=== PATIENT | male | born 1970 | race Caucasian/White ===

== ENCOUNTER 2018-06-20 22:14 | Emergency (ER) | payer OTHER ==
[~2018-06-20] VITALS: Ht 177.8 cm; Wt 65.8 kg
[2018-06-20 22:16] VITALS: BP 133/89
[2018-06-20] MEDS ORDERED: LIDOCAINE HCL/PF 1% 30 ML VIAL TP ONE (23:00)
[2018-06-20] MEDS ORDERED: LIDOCAINE 0.5% HCL 50 ML VIAL ONE (23:04)
== END 2018-06-20 23:46 | disposition home or self-care (01) ==
LOC: ER 22:19
DX: S61.211A Laceration without foreign body of left index finger without damage to nail, initial encounter (principal); Z98.890 Other specified postprocedural states; Z88.8 Allergy status to other drugs, medicaments and biological substances; W20.8XXA Other cause of strike by thrown, projected or falling object, initial encounter; Y93.89 Activity, other specified; Y92.89 Other specified places as the place of occurrence of the external cause; Y99.0 Civilian activity done for income or pay
CPT/HCPCS: 12001; 99283; A4606; A6402; J3490 ×2; Z7610

== ENCOUNTER 2018-11-14 01:54 | Emergency (ER) | payer SELFPAY ==
[~2018-11-14] VITALS: Ht 177.8 cm; Wt 68.0 kg
[2018-11-14 02:56] LABS: APPEARANCE,URINE CLOUDY (CLEAR); BILIRUBIN,URINE 1+ (NEGATIVE); BLOOD, URINE 3+ Ery/uL (NEGATIVE); COLOR,URINE BROWN (YELLOW); KETONES,URINE 2+ (NEGATIVE); LEUKOCYTE ESTERASE ,URINE TRACE (NEGATIVE); NITRITE, URINE POSITIVE (NEGATIVE); PH,URINE 6.5 (5.0-8.0); PROTEIN,URINE 2+ mg/dl (NEGATIVE); UGLUCOSE NEGATIVE (NEGATIVE)
[2018-11-14] MEDS ORDERED: HYDROMORPHONE INJ 2 MG/ML DISP.SYRIN IV ONE (03:00)
[2018-11-14] MEDS ORDERED: IV NS 0.9% 1,000 ML BAG IV ONE (03:00)
[2018-11-14] MEDS ORDERED: TAMSULOSIN 0.4 MG CAP.SR.24H PO ONE (03:00)
[2018-11-14] MEDS ORDERED: ONDANSETRON HCL/PF 4 MG/2 ML VIAL IVP ONE (03:00)
[2018-11-14] MEDS ORDERED: KETOROLAC TROMETHAMINE INJ 30 MG/ML VIAL IV ONE (03:00)
[2018-11-14] MEDS ORDERED: HYDROMORPHONE INJ 2 MG/ML DISP.SYRIN ONE (03:27)
[2018-11-14] MEDS ORDERED: KETOROLAC TROMETHAMINE INJ 30 MG/ML VIAL ONE (03:28)
[2018-11-14] MEDS ORDERED: ONDANSETRON HCL/PF 4 MG/2 ML VIAL ONE (03:28)
[2018-11-14] MEDS ORDERED: TAMSULOSIN 0.4 MG CAP.SR.24H ONE (03:28)
--- NOTE | 2018-11-14 03:30 | NUR ---
pt transported to radiology
[2018-11-14 03:33] LABS: BASOPHILS % (AUTO) 0.4 % (0.0-2.0); HEMATOCRIT 43 % (39-51); HEMOGLOBIN 14.4 g/dL (13.5-17.5); LYMPHOCYTES # (AUTO) 0.8 /CMM (0.8-4.8); LYMPHOCYTES % (AUTO) 6.6 % (20.0-44.0); MEAN CORPUSCULAR HGB CONC 33 g/dl (31.0-36.0); MEAN CORPUSCULAR VOLUME 101 fL (80-96); MONOCYTES # (AUTO) 0.7 /CMM (0.1-1.30); MONOCYTES % (AUTO) 5.5 % (2.0-12.0); NEUTROPHILS # (AUTO) 11.1 /CMM (1.8-8.9); NEUTROPHILS % (AUTO) 87.5 % (43.0-81.0); PLATELET COUNT (AUTO) 256 /CMM (150-450); RED BLOOD CELL COUNT(AUTO) 4.29 MIL/uL (4.5-6.0); WHITE BLOOD COUNT (AUTO) 12.7 K/uL (4.3-11.0)
[2018-11-14 03:41] LABS: BACTERIA,URINE Few /HPF (None Seen); RBC,URINE TOO NUMEROUS TO COUN /HPF (0-2); SQUAMOUS EPITHELIAL CELL,UR Rare /HPF (None Seen)
--- NOTE | 2018-11-14 03:43 | NUR ---
Pt back from Radiology
[2018-11-14 03:46] LABS: ALBUMIN 4.1 g/dL (3.4-5.0); BILIRUBIN,DIRECT 0.1 mg/dL (0.0-0.2); BILIRUBIN,TOTAL 0.6 mg/dL (0.2-1.0); CALCIUM, SERUM 8.8 mg/dL (8.5-10.1); TOTAL PROTEIN, SERUM 7.5 g/dL (6.4-8.2)
--- NOTE | 2018-11-14 03:50 | NUR ---
pt refused dilaudid, stating "my pain is not that bad at this time." also states "I'm hesitant to take strong pain meds."
[2018-11-14 04:53] VITALS: BP 124/84
--- NOTE | 2018-11-14 04:54 | NUR ---
Patient discharged to home in stable condition. Written and verbal after care instructions, prescription and copies of lab report and CT Pelvis result given. Patient verbalizes understanding of instruction.IV removed. Catheter intact and site benign. Pressure and 4x4 applied to site. No bleeding noted.Pt ambulatory with a steady gait
== END 2018-11-14 04:57 | disposition home or self-care (01) ==
LOC: ER 02:03
DX: N13.2 Hydronephrosis with renal and ureteral calculous obstruction (principal); F10.10 Alcohol abuse, uncomplicated; Y90.9 Presence of alcohol in blood, level not specified; Z96.652 Presence of left artificial knee joint
CPT/HCPCS: 36415; 80048-TC; 80076-TC; 81000-TC; 83690-TC; 85025-TC; 87086-TC; A4606; J1170; J1885; J2405; J7030; Z7610